=== PATIENT | male | born 1990 | race Caucasian/White ===

== ENCOUNTER 2022-08-10 19:19 | Emergency (ER) | payer OTHER, SELFPAY ==
--- NOTE | 2022-08-10 19:22 | ED.URI ---
HPI - URI/Sore Throat General Chief Complaint: Upper Respiratory Infection Stated Complaint: COUGH Time Seen by Provider: 08/10/22 19:27 Source: patient and RN notes reviewed Mode of arrival: ambulatory Limitations: no limitations History of Present Illness HPI Narrative: 32-year-old male presents concern for cough. He reports cough has been present for 2-3 weeks. Reports symptoms started 2-3 weeks ago with nasal congestion, rhinorrhea, cough. Reports a cough improved and was gone until about 2-3 days ago when it started coughing again. He reports a cough worse in the last 24 hours. He reports feeling of chest congestion. Reports nausea and headache. MD elicited complaint: cough Related Data Home Medications Medication Instructions Recorded Confirmed brexpiprazole 2 mg tablet (Rexulti) 2 mg PO DAILY 08/10/22 08/10/22 bupropion HCl 150 mg 24 hr tablet, 150 mg PO DAILY 08/10/22 08/10/22 extended release lamotrigine 200 mg tablet 200 mg PO BID 08/10/22 08/10/22 Allergies Allergy/AdvReac Type Severity Reaction Status Date / Time No Known Allergies Allergy Verified 08/10/22 19:27 Review of Systems Review of Systems: CONSTITUTIONAL: Reports malaise, low-grade fever. EYES: Denies visual changes, redness, or discharge. ENT: Reports rhinorrhea. Denies congestion, sinus pain, otalgia and sore throat. CARDIOVASCULAR: Denies chest pain, palpitations, or edema. RESPIRATORY: Reports cough and chest congestion. Denies dyspnea. GASTROINTESTINAL: Denies abdominal pain, nausea, vomiting, diarrhea SKIN: Denies rash or itching. MUSCULOSKELETAL: Denies myalgia. NEUROLOGIC: Reports headache. All systems reviewed & are unremarkable except as noted in HPI and below [facility] Comments At time of signature, agree with nursing past medical, surgical, social and family history. There is no relevant family history pertinent to the presenting complaint Exam Narrative: GENERAL: Nontoxic-appearing and in no acute distress. HEAD: Normocephalic EYES: PERRLA, conjunctivae clear ENT: Nares clear, turbinates edematous and erythematous, clear discharge. Mucous membranes moist. TM pearly nuñez with sharp light reflex bilaterally; no tragal tenderness. Oropharynx not erythematous without lesions. Tonsils not enlarged and without exudate, no drooling, no hoarseness, no trismus, uvula midline. NECK: Supple. No lymphadenopathy CHEST: Clear to auscultation, breath sounds equal. No wheezing, rhonchi, rales, or stridor. No respiratory distress, speaks in full sentences. HEART: Regular rate and rhythm. No murmur heard. SKIN: Warm, dry, no rash. NEURO: Alert and oriented x3. PSYCH: Normal mood and affect Course Course Emergency Course: Patient is aware of diagnosis, understands and agrees to treatment plan. Anticipatory guidance given. Patient agrees to follow-up as directed and is aware of reasons to seek care at the emergency department. Portions of this record may have been created with voice recognition software Level of Care: Express Care Visit Vital Signs Vital signs: Reviewed. MDM - URI/Sore Throat MDM Narrative Medical decision making narrative: Differential diagnosis considered: Barr virus, strep pharyngitis, allergic rhinitis, upper respiratory tract infection, sinusitis, rhinosinusitis, nasopharyngitis. viral pharyngitis, otitis media, otitis externa, pneumonia, bronchitis, viral cough syndrome, viral syndrome, and influenza. Exam findings show no acute concerns or changes; patient is non-toxic appearing and is in no distress. Patient is appropriate for outpatient treatment and follow-up. Lab Data Attestation: I reviewed the patient's lab results. Critical Care Time Critical Care Time Critical Care Time: No Discharge Plan Discharge Clinical Impression: Influenza A Patient Disposition: Home, Self-Care Condition: Stable Instructions: Influenza (ED) Additional Instructions: -Your symptoms are likely caused by a vir
[2022-08-10 19:28] VITALS: BP 145/78; PULSE 113; RESP 20; TEMP 36.8; O2SAT 100
[2022-08-10 19:30] VITALS: BP 145/78; PULSE 113; RESP 20; TEMP 36.8; O2SAT 100
== END 2022-08-10 19:46 | disposition home or self-care (01) ==
PROVIDERS: Emergency Provider Nurse Practitioner
DX: J10.1 Influenza due to other identified influenza virus with other respiratory manifestations (principal); Z20.822 Contact with and (suspected) exposure to COVID-19
CPT/HCPCS: 87426; 87804; 99213; C9803; G0463

== ENCOUNTER 2024-01-03 16:29 | Emergency (ER) | payer OTHER, SELFPAY ==
--- NOTE | ~2024-01-03 | XR_ITS ---
EXAMINATION: XR finger 5th RT min 2V DATE: 01/03/2024 16:46 INDICATION: Persistent right fifth digit pain post trauma 5 days prior. TECHNIQUE: Dorsal palmar, lateral and 2 oblique views of the right fifth digit were obtained COMPARISON: None FINDINGS: Bone alignment is normal. Subtle tiny calcific density with mild chronic soft tissue swelling dorsal to the fifth distal interphalangeal joint without evident donor site which could represent either a c hronic dystrophic calcification or age indeterminate tiny chip or avulsion fracture. No other lesions suspicious for fracture identified. Joint spaces are normal. IMPRESSION: 1. Soft tissue swelling dorsal to the fifth distal interphalangeal joint where there is an age-indete rminate tiny calcific density without evident donor site to more specifically suggest fracture. Diffe rential includes dystrophic calcification or tiny age indeterminate chip versus avulsion fracture fra gment. Reviewed, dictated and finalized at location A. IMPRESSION: 1. Soft tissue swelling dorsal to the fifth distal interphalangeal joint where there is an age-indeterminate tiny calcific density without evident donor site to more specifically suggest fracture. Differential includes dystrophic calcifi cation or tiny age indeterminate chip versus avulsion fracture fragment.
--- NOTE | 2024-01-03 16:35 | ED.GENADULT ---
HPI - General Adult General Chief complaint: Extremity Injury, Upper Stated complaint: Injured Finger Time Seen by Provider: 01/03/24 16:39 Source: patient, RN notes reviewed and old records reviewed Mode of arrival: ambulatory Limitations: no limitations History of Present Illness HPI narrative: 33-year-old male to Express Care for complaint of right 5th finger pain for 6 days. Patient endorses that 6 days ago injury was caused when he was moving large rocks for landscaping. patient states the injury happened so quickly that he is unsure of exact mechanism of injury. Patient endorses obvious dislocation at time of injury and a friend put it back into place for him. Patient has been wearing splint since injury. Patient endorses continued discomfort despite attempting to treat with ibuprofen. Patient denies numbness, tingling. Related Data Home Medications Medication Instructions Recorded Confirmed brexpiprazole 2 mg tablet (Rexulti) 2 mg PO DAILY 08/10/22 01/03/24 bupropion HCl 150 mg 24 hr tablet, 150 mg PO DAILY 08/10/22 01/03/24 extended release lamotrigine 200 mg tablet 200 mg PO BID 08/10/22 01/03/24 Allergies Allergy/AdvReac Type Severity Reaction Status Date / Time No Known Allergies Allergy Verified 01/03/24 16:37 Review of Systems Review of Systems: All systems reviewed & are unremarkable except as noted in HPI and below Constitutional: Constitutional: Reports no additional constitutional complaints Eyes: Eyes: Reports no additional eye complaints ENT: Reports system reviewed and no additional complaints, except as documented Cardiovascular: Cardiovascular: Reports no additional cardiovascular complaints, Denies chest pain and Denies dyspnea Respiratory: Respiratory: Reports no additional respiratory complaints, Denies cough and Denies dyspnea Musculoskeletal: Musculoskeletal: Reports as per HPI, Denies deformity, Reports arthralgias, Reports limited range of motion ( right 5th finger), Denies numbness and Denies tingling Neurologic: Reports system reviewed and no additional complaints, except as documented Psychiatric: Psychiatric: Reports no additional psychiatric complaints [facility] Comments At the time of my signature, I reviewed and agree with the nursing past medical, surgical, social, and family history. There is no relevant family history pertinent to the patient complaint. Exam Const: General: cooperative, healthy appearing, comfortable, no acute distress, alert and well nourished Nutritional Appearance: well nourished Orientation/consciousness: patient oriented x3 Limitations: no limitations HENMT: Head: normal to inspection Ears: external ears normal Face/Nose/Sinus: Normal external nose present, Normal nares present, normal facial exam, No erythema and No edema Face and sinus: normal facial exam, no erythema and no edema Mouth: Yes Normal oral and palatal mucosa present Eyes: General: appearance normal, both eyes and all related structures Neck: Neck: normal visual inspection, full ROM and no meningeal signs Lymphatic: no lymphadenopathy noted and no lymphedema noted Chest: Chest palpation & inspection: normal inspection of the chest Resp: Effort & Inspection: normal respiratory effort and able to speak in complete sentences Auscultation: clear to auscultation bilaterally Cardio: Jugular venous distension: no JVD Rate: regular rate Rhythm: regular rhythm Back/Spine/Pelvis: Cervical Spine: cervical ROM normal Skin: General skin exam: normal color, no rashes or lesions noted and turgor normal Neuro: General: patient oriented x3, gait normal, moves all extremities and no meningeal signs Speech: normal speech Gait exam (Neuro): Normal gait present Extrem: General: capillary refill normal Right upper extremity: Extremity exam: right hand normal capillary refill, neuromotor exam abnormal fingers 2-5 ABduction abnormal limited by pain ( right finger), neurosensory exam no
[2024-01-03 16:51] VITALS: BP 144/91; PULSE 91; RESP 16; TEMP 37.2; O2SAT 100
== END 2024-01-03 17:17 | disposition home or self-care (01) ==
PROVIDERS: Emergency Provider Nurse Practitioner Family
DX: S63.616A Unspecified sprain of right little finger, initial encounter (principal); X58.XXXA Exposure to other specified factors, initial encounter; F41.9 Anxiety disorder, unspecified
CPT/HCPCS: 73140; 99213; G0463